=== PATIENT | female | born 1970 | race Caucasian/White ===

== ENCOUNTER → 2016-04-09 | Outpatient (REF) ==
[~2016-04-09] MED LIST: ALBUTEROL0.09 MG/A1 IH; ALEVE 220MG220 MG PO; ARTHRITIS MEDICATION; ASPIRIN 81M81 MG/TA2 PO; CIPRO 500MG TA500 MG PO; CLINDAMYCIN HC300 MG PO; COREG 6.256.25 MG/TA PO; DAZIDOX10 MG PO; FLAGYL500 MG PO; FLEXERIL 1010 MG/TAB PO; HYDROCODONE/APAP; LASIX 40MG TABL40 MG PO; LEXAPRO 10MG10 MG PO; LIPITOR 80MG80 MG PO; LISINOPRIL/HCTZ1 TAB PO; LISINOPRIL2.5 MG PO; LORTAB 5/500 501 TAB PO; LORTAB 7.5/5001 TAB PO; MECLIZINE25 MG PO; MOTRIN 800800 MG/TAB PO; NAPROSYN500 MG PO; NITROSTAT0.4 MG SL; NITROSTAT0.4 MG/TAB SL; NORCO 325 MG-51 TAB; NORCO 325 MG-51 TAB PO; NORCO 325 MG-7.1 TAB PO; NORVASC2.5 MG PO; PLAVIX 75MG TAB75 MG PO; TOPROL XL 25MG25 MG PO; TYLENOL 325MG325 MG PO; VALIUM2 MG PO; XANAX 0.5MG0.5 MG PO; ZESTRIL2.5 MG PO; ZITHROMAX500 MG PO; [UNRECOGNIZED DRUG - OTHER] PO; [UNRECOGNIZED DRUG - REMARK]
== END ==
LOC: ZLAB.WCH 10:30
DX: Z01.89 Encounter for other specified special examinations (principal)

== ENCOUNTER 2016-04-30 06:56 | Emergency (ER) | payer BC ==
[~2016-04-30] VITALS: Ht 162.6 cm; Wt 90.9 kg
[~2016-04-30 06:56] MED LIST changes: -ASPIRIN 81M81 MG/TA2 PO; -COREG 6.256.25 MG/TA PO; -DAZIDOX10 MG PO; -FLEXERIL 1010 MG/TAB PO; -LASIX 40MG TABL40 MG PO; -LEXAPRO 10MG10 MG PO; -LIPITOR 80MG80 MG PO; -NITROSTAT0.4 MG/TAB SL; -NORVASC2.5 MG PO; -PLAVIX 75MG TAB75 MG PO; -TOPROL XL 25MG25 MG PO; -TYLENOL 325MG325 MG PO; -XANAX 0.5MG0.5 MG PO; -ZESTRIL2.5 MG PO
[2016-04-30] MEDS ORDERED: FLEXERIL 1010 MG/TAB PO (08:10)
[2016-04-30] MEDS ORDERED: NORCO 325 MG-51 TAB PO (08:14)
[2016-04-30 08:26] VITALS: BP 147/89; PULSE 107; TEMP 98.2
[2016-11-24] MEDS ORDERED: NORCO 325 MG-51 TAB PO (01:52)
[2016-11-24] MEDS ORDERED: NORVASC2.5 MG PO (01:52)
== END 2016-04-30 08:26 | disposition home or self-care (01) ==
LOC: COL.ER 06:56
DX: S29.012A Strain of muscle and tendon of back wall of thorax, initial encounter (principal); S56.812A Strain of other muscles, fascia and tendons at forearm level, left arm, initial encounter; W11.XXXA Fall on and from ladder, initial encounter; Y92.009 Unspecified place in unspecified non-institutional (private) residence as the place of occurrence of the external cause; I10 Essential (primary) hypertension; I25.2 Old myocardial infarction; F17.210 Nicotine dependence, cigarettes, uncomplicated

== ENCOUNTER 2016-08-31 17:15 | Emergency (ER) | payer OTHER ==
[~2016-08-31] VITALS: Ht 162.6 cm; Wt 82.7 kg
[~2016-08-31 17:15] MED LIST changes: +FLEXERIL 1010 MG/TAB PO
[2016-08-31 17:23] VITALS: BP 154/97; TEMP 98.7
[2016-08-31] MEDS ORDERED: LASIX 40MG TABL40 MG PO (17:27)
[2016-08-31] MEDS ORDERED: COREG 6.256.25 MG/TA PO (17:27)
[2016-08-31] MEDS ORDERED: PLAVIX 75MG TAB75 MG PO (17:28)
[2016-08-31] MEDS ORDERED: XANAX 0.5MG0.5 MG PO (17:28)
[2016-08-31 18:33] VITALS: PULSE 95
[2016-11-24] MEDS ORDERED: NORCO 325 MG-51 TAB PO (01:52)
[2016-11-24] MEDS ORDERED: NORVASC2.5 MG PO (01:52)
== END 2016-08-31 18:34 | disposition home or self-care (01) ==
LOC: COL.ER 17:15
DX: S63.501A Unspecified sprain of right wrist, initial encounter (principal); W22.09XA Striking against other stationary object, initial encounter; I25.10 Atherosclerotic heart disease of native coronary artery without angina pectoris; I50.9 Heart failure, unspecified; J44.9 Chronic obstructive pulmonary disease, unspecified; F17.210 Nicotine dependence, cigarettes, uncomplicated; Z79.02 Long term (current) use of antithrombotics/antiplatelets

== ENCOUNTER → 2016-09-12 | Outpatient (REF) ==
[~2016-09-12] MED LIST changes: +ASPIRIN 81M81 MG/TA2 PO; +COREG 6.256.25 MG/TA PO; +DAZIDOX10 MG PO; +LASIX 40MG TABL40 MG PO; +LEXAPRO 10MG10 MG PO; +LIPITOR 80MG80 MG PO; +NITROSTAT0.4 MG/TAB SL; +NORVASC2.5 MG PO; +PLAVIX 75MG TAB75 MG PO; +TOPROL XL 25MG25 MG PO; +TYLENOL 325MG325 MG PO; +XANAX 0.5MG0.5 MG PO; +ZESTRIL2.5 MG PO
[2016-09-12 10:28] LABS: THYROID STIMULATING HORMONE 0.531 uIU/mL (0.465-4.680)
== END ==
LOC: ZLAB.WCH 09:32
PROVIDERS: Nurse Practitioner Family
DX: Z01.89 Encounter for other specified special examinations (principal)

== ENCOUNTER → 2016-09-13 | Outpatient (REF) | LOC: ZLAB.WCH 08:54 | DX: Z01.89 Encounter for other specified special examinations (principal) ==

== ENCOUNTER 2016-10-08 19:46 | Inpatient (IN) | payer OTHER ==
[2016-10-08] VITALS (90 sets, daily range): O2SAT 100
[~2016-10-08] VITALS: Ht 167.6 cm; Wt 86.1 kg
[~2016-10-08 19:46] MED LIST changes: -ASPIRIN 81M81 MG/TA2 PO; -DAZIDOX10 MG PO; -LEXAPRO 10MG10 MG PO; -LIPITOR 80MG80 MG PO; -NITROSTAT0.4 MG/TAB SL; -NORVASC2.5 MG PO; -TOPROL XL 25MG25 MG PO; -TYLENOL 325MG325 MG PO; -ZESTRIL2.5 MG PO
[2016-10-08 20:23] LABS: BASO # 0.1 (0.0-0.2); BASO % 0.7 % (0.0-2.0); EOS % 7.6 % (0-4.0); GRAN # 6.1 (1.4-6.5); GRAN % 48.9 % (42.2-75.2); HEMATOCRIT 44.9 % (37.0-47.0); HEMOGLOBIN 15.3 g/dl (12.5-16.0); LYMPH # 4.6 (1.2-3.4); LYMPH % 36.5 % (20.0-51.0); MEAN CELL VOLUME 93 fl (80.0-100.0); MEAN CORPUSCULAR HEMOGLOBIN 32 pg (27.0-31.0); MEAN CORPUSCULAR HGB CONC 34 g/dl (33.0-37.0); MEAN PLATELET VOLUME 9.7 fl (7.4-10.4); MONO # 0.8 (0.1-0.6); PLATELET COUNT 287 K/mm3 (130-400); RED BLOOD COUNT 4.84 M/mm3 (4.10-5.30); REDCELL DISTRIBUTION WIDTH-CV 13.1 % (11.5-14.5); WHITE BLOOD COUNT 12.6 K/mm3 (4.8-10.8)
[2016-10-08 20:35] LABS: ADJUSTED CALCIUM 8.6 mg/dL (8.4-10.2); ALANINE AMINOTRANSFERASE 24 U/L (9-52); ALBUMIN 3.7 gm/dL (3.5-5.0); ALKALINE PHOSPHATASE 69 U/L (50-136); ANION GAP 11 mmol/L (7-16); BILIRUBIN,TOTAL 0.6 mg/dL (0.0-1.0); BLOOD UREA NITROGEN 2 mg/dL (7-17); CALCIUM 8.4 mg/dL (8.4-10.2); CARBON DIOXIDE 21 mmol/L (22-30); CHLORIDE 109 mmol/L (98-107); GLUCOSE 84 mg/dL (74-106); LIPASE 88 U/L (23-300); POTASSIUM 3.5 mmol/L (3.4-5.0); SALICYLATE 2.1 mg/dL; SODIUM 140 mmol/L (137-145); TOTAL PROTEIN 6.6 gm/dL (6.4-8.2)
[2016-10-08] MEDS ORDERED: XANAX 0.5MG0.5 MG PO (20:37)
[2016-10-08 20:38] LABS: ACETAMINOPHEN < 10 ug/mL (10-30)
[2016-10-08] MEDS ORDERED: FLEXERIL 1010 MG/TAB PO (20:38)
[2016-10-08 20:49] LABS: AMPHETAMINE URINE NEGATIVE; BARBITURATES URINE NEGATIVE; BENZODIAZEPINES URINE POSITIVE; BUPRENORPHINE URINE NEGATIVE; METHADONE URINE NEGATIVE; OPIATES URINE NEGATIVE; OXYCODONE URINE NEGATIVE; PH 7 (5-8); PHENCYCLIDINE URINE NEGATIVE; PROPOXYPHENE URINE NEGATIVE; THC CANNABINOIDS URINE NEGATIVE; URINE APPEARANCE Clear; URINE BACTERIA Rare /hpf; URINE BILIRUBIN Negative (NEGATIVE); URINE BLOOD Negative (NEGATIVE); URINE COLOR Straw; URINE GLUCOSE Negative (NEGATIVE); URINE KETONE Negative (NEGATIVE); URINE RBC 0-2 /hpf; URINE UROBILINOGEN Negative (NEGATIVE); URINE WBC 0-2 /hpf
[2016-10-08] MEDS ORDERED: NITROSTAT0.4 MG/TAB SL (21:11)
[2016-10-08 21:12] LABS: TROPONIN-I 0.439 ng/mL (0.000-0.034)
[2016-10-08 23:22] LABS: PARTIAL THROMBOPLASTIN TIME 28.6 SECONDS (26.0-37.0)
[2016-10-09] VITALS (651 sets, daily range): BP systolic 120–148; BP diastolic 74–98; PULSE 83–100; TEMP 97–98.3; O2SAT 90–100
[2016-10-09 06:02] LABS: BASO # 0.1 (0.0-0.2); BASO % 0.8 % (0.0-2.0); EOS # 0.9 (0.0-0.7); EOS % 9.3 % (0-4.0); GRAN % 59.6 % (42.2-75.2); HEMATOCRIT 44.9 % (37.0-47.0); HEMOGLOBIN 15.4 g/dl (12.5-16.0); LYMPH # 2.3 (1.2-3.4); MEAN CELL VOLUME 92 fl (80.0-100.0); MEAN CORPUSCULAR HEMOGLOBIN 31 pg (27.0-31.0); MEAN CORPUSCULAR HGB CONC 34 g/dl (33.0-37.0); MEAN PLATELET VOLUME 9.3 fl (7.4-10.4); MONO # 0.7 (0.1-0.6); MONO % 6.9 % (1.7-9.3); PLATELET COUNT 294 K/mm3 (130-400); REDCELL DISTRIBUTION WIDTH-CV 13.2 % (11.5-14.5)
[2016-10-09 08:48] LABS: PARTIAL THROMBOPLASTIN TIME 36.6 SECONDS (26.0-37.0)
[2016-10-10] VITALS (685 sets, daily range): BP systolic 112–148; BP diastolic 66–97; PULSE 74–91; TEMP 97.3–98.4; O2SAT 100
[2016-10-10 04:42] LABS: HEMATOCRIT 44.9 % (37.0-47.0); HEMOGLOBIN 15.4 g/dl (12.5-16.0); MEAN CELL VOLUME 92 fl (80.0-100.0); MEAN CORPUSCULAR HEMOGLOBIN 32 pg (27.0-31.0); MEAN CORPUSCULAR HGB CONC 34 g/dl (33.0-37.0); MEAN PLATELET VOLUME 9.3 fl (7.4-10.4); PLATELET COUNT 296 K/mm3 (130-400); RED BLOOD COUNT 4.88 M/mm3 (4.10-5.30); REDCELL DISTRIBUTION WIDTH-CV 13.3 % (11.5-14.5); WHITE BLOOD COUNT 9.4 K/mm3 (4.8-10.8)
[2016-10-10 04:53] LABS: CALCIUM 8.5 mg/dL (8.4-10.2); CREATININE, serum 0.6 mg/dL (0.52-1.25); MAGNESIUM 1.8 mg/dL (1.6-2.3); POTASSIUM 3.1 mmol/L (3.4-5.0)
[2016-10-10 05:08] LABS: TROPONIN-I 1.31 ng/mL (0.000-0.034)
[2016-10-11] VITALS (597 sets, daily range): BP systolic 107–153; BP diastolic 61–108; PULSE 71–94; TEMP 97.2–98.8; O2SAT 93–100
[2016-10-11 18:42] LABS: TROPONIN-I 0.645 ng/mL (0.000-0.034)
[2016-10-11 19:26] LABS: POTASSIUM 3.8 mmol/L (3.4-5.0)
[2016-10-12] VITALS (1068 sets, daily range): BP systolic 120–154; BP diastolic 85–100; PULSE 75–84; TEMP 97.8–98.2; O2SAT 89–100
[2016-10-12 05:58] LABS: HEMATOCRIT 44.3 % (37.0-47.0); MEAN CELL VOLUME 93 fl (80.0-100.0); MEAN CORPUSCULAR HEMOGLOBIN 31 pg (27.0-31.0); MEAN CORPUSCULAR HGB CONC 34 g/dl (33.0-37.0); MEAN PLATELET VOLUME 9.3 fl (7.4-10.4); PLATELET COUNT 287 K/mm3 (130-400); RED BLOOD COUNT 4.79 M/mm3 (4.10-5.30)
[2016-10-12 06:08] LABS: POTASSIUM 3.6 mmol/L (3.4-5.0)
[2016-10-12 06:23] LABS: TROPONIN-I 0.566 ng/mL (0.000-0.034)
[2016-10-12 06:28] LABS: CALCIUM 8.4 mg/dL (8.4-10.2); CREATININE, serum 0.62 mg/dL (0.52-1.25); POTASSIUM 3.6 mmol/L (3.4-5.0)
[2016-10-12] MEDS ORDERED: PLAVIX 75MG TAB75 MG PO (16:50)
[2016-10-12] MEDS ORDERED: LIPITOR 80MG80 MG PO (16:50)
[2016-10-12] MEDS ORDERED: ASPIRIN 81M81 MG/TA2 PO (16:51)
[2016-10-12] MEDS ORDERED: ZESTRIL2.5 MG PO (16:51)
[2016-10-12] MEDS ORDERED: TOPROL XL 25MG25 MG PO (16:51)
[2016-10-12] MEDS ORDERED: LEXAPRO 10MG10 MG PO (16:52)
[2016-10-12] MEDS ORDERED: TYLENOL 325MG325 MG PO (16:52)
[2016-11-24] MEDS ORDERED: NORVASC2.5 MG PO (01:52)
[2016-11-24] MEDS ORDERED: NORCO 325 MG-51 TAB PO (01:52)
== END 2016-10-12 18:28 | DRG 917 ==
LOC: COL.ER 19:46 → ICU 21:46 → MEDICAL 10-10 19:38 → ICU 10-11 12:40
PROVIDERS: Emergency Medicine; Family Medicine; Internal Medicine; Nurse Practitioner Family
DX: T42.4X1A Poisoning by benzodiazepines, accidental (unintentional), initial encounter (principal); I21.4 Non-ST elevation (NSTEMI) myocardial infarction; F33.2 Major depressive disorder, recurrent severe without psychotic features; T48.1X1A Poisoning by skeletal muscle relaxants [neuromuscular blocking agents], accidental (unintentional), initial encounter; I10 Essential (primary) hypertension; F17.210 Nicotine dependence, cigarettes, uncomplicated; Z85.820 Personal history of malignant melanoma of skin; Z88.0 Allergy status to penicillin; I25.2 Old myocardial infarction
CPT/HCPCS: 90791-AI; 99222-AI; 99232-AI; 99233-AI; 99239; J1644; J1650; J1940; J7030

== ENCOUNTER 2016-10-29 22:54 | Emergency (ER) | payer OTHER ==
[~2016-10-29] VITALS: Ht 165.1 cm; Wt 87.3 kg
[~2016-10-29 22:54] MED LIST changes: +ASPIRIN 81M81 MG/TA2 PO; +LEXAPRO 10MG10 MG PO; +LIPITOR 80MG80 MG PO; +NITROSTAT0.4 MG/TAB SL; +TOPROL XL 25MG25 MG PO; +TYLENOL 325MG325 MG PO; +ZESTRIL2.5 MG PO
[2016-10-29 22:57] VITALS: TEMP 97.2
[2016-10-29 23:23] LABS: BASO # 0.1 (0.0-0.2); BASO % 0.8 % (0.0-2.0); EOS # 1.1 (0.0-0.7); EOS % 9.7 % (0-4.0); GRAN # 5.2 (1.4-6.5); GRAN % 46.4 % (42.2-75.2); HEMATOCRIT 43.2 % (37.0-47.0); LYMPH # 4.2 (1.2-3.4); LYMPH % 37.2 % (20.0-51.0); MEAN CELL VOLUME 92 fl (80.0-100.0); MEAN CORPUSCULAR HEMOGLOBIN 32 pg (27.0-31.0); MEAN CORPUSCULAR HGB CONC 35 g/dl (33.0-37.0); MONO # 0.6 (0.1-0.6); PLATELET COUNT 329 K/mm3 (130-400); RED BLOOD COUNT 4.69 M/mm3 (4.10-5.30); WHITE BLOOD COUNT 11.3 K/mm3 (4.8-10.8)
[2016-10-29 23:27] LABS: ADJUSTED CALCIUM 8.8 mg/dL (8.4-10.2); ALBUMIN 3.9 gm/dL (3.5-5.0); BILIRUBIN,TOTAL 0.4 mg/dL (0.0-1.0); CALCIUM 8.7 mg/dL (8.4-10.2); CREATININE, serum 0.83 mg/dL (0.52-1.25); POTASSIUM 3.1 mmol/L (3.4-5.0); TOTAL PROTEIN 7.2 gm/dL (6.4-8.2)
[2016-10-29 23:34] LABS: TROPONIN-I 0.056 ng/mL (0.000-0.034)
[2016-10-30 01:00] VITALS: BP 144/84; PULSE 76
[2016-10-30] MEDS ORDERED: LASIX 40MG TABL40 MG PO (01:03)
[2016-10-30] MEDS ORDERED: COREG 6.256.25 MG/TA PO (01:03)
[2016-10-30] MEDS ORDERED: DAZIDOX10 MG PO (01:04)
[2016-10-30] MEDS ORDERED: PLAVIX 75MG TAB75 MG PO (01:04)
[2016-10-30] MEDS ORDERED: ASPIRIN 81M81 MG/TA2 PO (01:05)
[2016-10-30] MEDS ORDERED: LEXAPRO 10MG10 MG PO (01:05)
[2016-10-30] MEDS ORDERED: NITROSTAT0.4 MG/TAB SL (01:06)
[2016-10-30 02:11] LABS: AMPHETAMINE URINE NEGATIVE; BARBITURATES URINE NEGATIVE; BENZODIAZEPINES URINE POSITIVE; BUPRENORPHINE URINE NEGATIVE; METHADONE URINE NEGATIVE; OPIATES URINE POSITIVE; OXYCODONE URINE POSITIVE; PHENCYCLIDINE URINE NEGATIVE; PROPOXYPHENE URINE NEGATIVE; THC CANNABINOIDS URINE NEGATIVE
[2016-11-24] MEDS ORDERED: NORVASC2.5 MG PO (01:52)
[2016-11-24] MEDS ORDERED: NORCO 325 MG-51 TAB PO (01:52)
== END 2016-10-30 01:30 | disposition short-term general hospital (02) ==
LOC: COL.ER 22:54
PROVIDERS: Emergency Medicine
DX: I21.3 ST elevation (STEMI) myocardial infarction of unspecified site (principal); I10 Essential (primary) hypertension; I25.2 Old myocardial infarction; I25.10 Atherosclerotic heart disease of native coronary artery without angina pectoris; E78.5 Hyperlipidemia, unspecified; F17.210 Nicotine dependence, cigarettes, uncomplicated; Z79.02 Long term (current) use of antithrombotics/antiplatelets; Z79.82 Long term (current) use of aspirin; Z90.710 Acquired absence of both cervix and uterus; Z98.890 Other specified postprocedural states
CPT/HCPCS: J1170; J1644; J2060

== ENCOUNTER 2016-11-18 21:00 | Emergency (ER) | payer OTHER ==
[~2016-11-18] VITALS: Ht 162.6 cm; Wt 89.1 kg
[~2016-11-18 21:00] MED LIST changes: +DAZIDOX10 MG PO
[2016-11-18 21:02] VITALS: TEMP 98
[2016-11-18 21:21] LABS: BASO # 0.1 (0.0-0.2); BASO % 0.5 % (0.0-2.0); EOS # 0.7 (0.0-0.7); EOS % 5.1 % (0-4.0); GRAN # 7.6 (1.4-6.5); GRAN % 56.3 % (42.2-75.2); HEMATOCRIT 45.3 % (37.0-47.0); HEMOGLOBIN 15.7 g/dl (12.5-16.0); LYMPH # 4.3 (1.2-3.4); MEAN CELL VOLUME 92 fl (80.0-100.0); MEAN CORPUSCULAR HEMOGLOBIN 32 pg (27.0-31.0); MEAN CORPUSCULAR HGB CONC 35 g/dl (33.0-37.0); MEAN PLATELET VOLUME 8.7 fl (7.4-10.4); MONO # 0.8 (0.1-0.6); MONO % 5.7 % (1.7-9.3); PLATELET COUNT 394 K/mm3 (130-400); RED BLOOD COUNT 4.92 M/mm3 (4.10-5.30); REDCELL DISTRIBUTION WIDTH-CV 13.1 % (11.5-14.5); WHITE BLOOD COUNT 13.6 K/mm3 (4.8-10.8)
[2016-11-18 21:34] LABS: ADJUSTED CALCIUM 9.3 mg/dL (8.4-10.2); BILIRUBIN,TOTAL 0.9 mg/dL (0.0-1.0); CALCIUM 9.3 mg/dL (8.4-10.2); CREATININE, serum 0.78 mg/dL (0.52-1.25); TOTAL PROTEIN 7.1 gm/dL (6.4-8.2)
[2016-11-18 22:04] LABS: TROPONIN-I 1.31 ng/mL (0.000-0.034)
[2016-11-18 22:32] LABS: INR 1.1 (0.8-3.0)
[2016-11-18 23:18] VITALS: BP 134/95; PULSE 84
[2016-11-24] MEDS ORDERED: NORCO 325 MG-51 TAB PO (01:52)
[2016-11-24] MEDS ORDERED: NORVASC2.5 MG PO (01:52)
== END 2016-11-18 23:18 | disposition short-term general hospital (02) ==
LOC: COL.ER 21:00
PROVIDERS: Emergency Medicine
DX: I21.4 Non-ST elevation (NSTEMI) myocardial infarction (principal); I50.9 Heart failure, unspecified; F17.210 Nicotine dependence, cigarettes, uncomplicated; Z98.890 Other specified postprocedural states; Z79.82 Long term (current) use of aspirin
CPT/HCPCS: J1170; J1644

== ENCOUNTER 2016-11-29 21:58 | Emergency (ER) | payer SELFPAY ==
[~2016-11-29] VITALS: Ht 162.6 cm; Wt 85.5 kg
[~2016-11-29 21:58] MED LIST changes: +NORVASC2.5 MG PO
[2016-11-29 22:36] LABS: BASO # 0.1 (0.0-0.2); BASO % 0.7 % (0.0-2.0); EOS # 0.7 (0.0-0.7); EOS % 4.1 % (0-4.0); GRAN # 10.1 (1.4-6.5); GRAN % 62.2 % (42.2-75.2); HEMATOCRIT 45.7 % (37.0-47.0); HEMOGLOBIN 15.8 g/dl (12.5-16.0); LYMPH # 4.5 (1.2-3.4); LYMPH % 27.9 % (20.0-51.0); MEAN CELL VOLUME 91 fl (80.0-100.0); MEAN CORPUSCULAR HEMOGLOBIN 32 pg (27.0-31.0); MEAN CORPUSCULAR HGB CONC 35 g/dl (33.0-37.0); MEAN PLATELET VOLUME 8.9 fl (7.4-10.4); MONO # 0.8 (0.1-0.6); MONO % 4.9 % (1.7-9.3); PLATELET COUNT 385 K/mm3 (130-400); RED BLOOD COUNT 5.01 M/mm3 (4.10-5.30); REDCELL DISTRIBUTION WIDTH-CV 12.9 % (11.5-14.5); WHITE BLOOD COUNT 16.2 K/mm3 (4.8-10.8)
[2016-11-29 22:41] LABS: PROTHROMBIN TIME 10.8 SECONDS (9.7-12.8)
[2016-11-29 22:44] LABS: PARTIAL THROMBOPLASTIN TIME 31.8 SECONDS (26.0-37.0)
[2016-11-29 23:47] LABS: ADJUSTED CALCIUM 9.7 mg/dL (8.4-10.2); ALBUMIN 4.3 gm/dL (3.5-5.0); BILIRUBIN,TOTAL 0.5 mg/dL (0.0-1.0); CALCIUM 9.9 mg/dL (8.4-10.2); CREATININE, serum 0.72 mg/dL (0.52-1.25); POTASSIUM 3.2 mmol/L (3.4-5.0); TOTAL PROTEIN 7.4 gm/dL (6.4-8.2)
[2016-11-29 23:59] LABS: TROPONIN-I 0.035 ng/mL (0.000-0.034)
[2016-11-30 00:15] VITALS: BP 132/91; PULSE 87
[2016-11-30 00:17] VITALS: TEMP 96.8
== END 2016-11-30 01:24 | disposition home or self-care (01) ==
LOC: COL.ER 21:58
PROVIDERS: Family Medicine
DX: R07.9 Chest pain, unspecified (principal); I10 Essential (primary) hypertension; E78.5 Hyperlipidemia, unspecified; I25.10 Atherosclerotic heart disease of native coronary artery without angina pectoris; D75.1 Secondary polycythemia; Z95.5 Presence of coronary angioplasty implant and graft; Z79.82 Long term (current) use of aspirin
CPT/HCPCS: C9113; J1170

== ENCOUNTER 2016-12-04 04:13 | Emergency (ER) | payer SELFPAY ==
[~2016-12-04] VITALS: Ht 162.6 cm; Wt 85.5 kg
[2016-12-04 04:24] VITALS: TEMP 98.2
[2016-12-04 04:32] LABS: BASO # 0.1 (0.0-0.2); BASO % 0.8 % (0.0-2.0); EOS # 1.1 (0.0-0.7); EOS % 7.6 % (0-4.0); GRAN # 7.5 (1.4-6.5); GRAN % 53.1 % (42.2-75.2); HEMATOCRIT 46.3 % (37.0-47.0); LYMPH # 4.6 (1.2-3.4); LYMPH % 32.3 % (20.0-51.0); MEAN CELL VOLUME 92 fl (80.0-100.0); MEAN CORPUSCULAR HEMOGLOBIN 32 pg (27.0-31.0); MEAN CORPUSCULAR HGB CONC 35 g/dl (33.0-37.0); MEAN PLATELET VOLUME 8.8 fl (7.4-10.4); MONO # 0.8 (0.1-0.6); MONO % 5.8 % (1.7-9.3); PLATELET COUNT 362 K/mm3 (130-400); RED BLOOD COUNT 5.05 M/mm3 (4.10-5.30); REDCELL DISTRIBUTION WIDTH-CV 13.1 % (11.5-14.5); WHITE BLOOD COUNT 14.1 K/mm3 (4.8-10.8)
[2016-12-04 04:36] LABS: INR 0.9 (0.8-3.0); PROTHROMBIN TIME 10.4 SECONDS (9.7-12.8)
[2016-12-04 04:39] LABS: PARTIAL THROMBOPLASTIN TIME 29.3 SECONDS (26.0-37.0)
[2016-12-04 04:41] LABS: ADJUSTED CALCIUM 9.3 mg/dL (8.4-10.2); ALBUMIN 4.4 gm/dL (3.5-5.0); BILIRUBIN,TOTAL 0.5 mg/dL (0.0-1.0); CALCIUM 9.6 mg/dL (8.4-10.2); CREATININE, serum 0.68 mg/dL (0.52-1.25); TOTAL PROTEIN 7.7 gm/dL (6.4-8.2)
[2016-12-04 04:53] LABS: TROPONIN-I 0.019 ng/mL (0.000-0.034)
[2016-12-04 07:25] VITALS: BP 132/83; PULSE 96
== END 2016-12-04 07:26 | disposition home or self-care (01) ==
LOC: COL.ER 04:13
PROVIDERS: Emergency Medicine
DX: I50.9 Heart failure, unspecified (principal); E87.6 Hypokalemia; I10 Essential (primary) hypertension; J44.9 Chronic obstructive pulmonary disease, unspecified; F17.210 Nicotine dependence, cigarettes, uncomplicated; Z79.82 Long term (current) use of aspirin; Z79.02 Long term (current) use of antithrombotics/antiplatelets; Z95.5 Presence of coronary angioplasty implant and graft; Z90.89 Acquired absence of other organs; Z90.710 Acquired absence of both cervix and uterus
CPT/HCPCS: J1940; J2060; J2765

== ENCOUNTER 2017-01-10 16:56 | Emergency (ER) | payer MEDICAID ==
[~2017-01-10] VITALS: Ht 162.6 cm; Wt 85.5 kg
[2017-01-10 16:58] VITALS: BP 151/85; PULSE 92; TEMP 97.9
[2017-01-10] MEDS ORDERED: REMERON 15M15 MG/TA1 PO (17:28)
[2017-01-10] MEDS ORDERED: AMBIEN 5MG TABLE5 MG PO (17:28)
[2017-01-10] MEDS ORDERED: MINIPRESS2 MG PO (17:28)
== END 2017-01-10 18:32 | disposition home or self-care (01) ==
LOC: COL.ER 16:56
DX: S76.011A Strain of muscle, fascia and tendon of right hip, initial encounter (principal); S89.91XA Unspecified injury of right lower leg, initial encounter; I25.10 Atherosclerotic heart disease of native coronary artery without angina pectoris; J44.9 Chronic obstructive pulmonary disease, unspecified; F17.210 Nicotine dependence, cigarettes, uncomplicated; D45 Polycythemia vera; Z79.82 Long term (current) use of aspirin; W01.0XXA Fall on same level from slipping, tripping and stumbling without subsequent striking against object, initial encounter

== ENCOUNTER 2017-04-28 10:56 | Emergency (ER) | payer MEDICAID ==
[~2017-04-28] VITALS: Ht 162.6 cm; Wt 85.5 kg
[~2017-04-28 10:56] MED LIST changes: +AMBIEN 5MG TABLE5 MG PO; +MINIPRESS2 MG PO; +REMERON 15M15 MG/TA1 PO
[2017-04-28 11:05] VITALS: BP 115/56; PULSE 85; TEMP 98.2
== END 2017-04-28 11:59 | disposition home or self-care (01) ==
LOC: COL.ER 10:56
DX: M79.644 Pain in right finger(s) (principal); I25.10 Atherosclerotic heart disease of native coronary artery without angina pectoris; I10 Essential (primary) hypertension; F17.210 Nicotine dependence, cigarettes, uncomplicated

== ENCOUNTER → 2017-06-03 | Outpatient (REF) | LOC: ZLAB.WCH 17:58 | DX: Z01.89 Encounter for other specified special examinations (principal) ==

== ENCOUNTER → 2018-01-10 | Outpatient (REF) | LOC: ZLAB.WCH 16:29 | DX: Z01.89 Encounter for other specified special examinations (principal) ==

== ENCOUNTER → 2018-06-30 | Outpatient (REF) | LOC: ZLAB.WCH 17:36 | DX: Z01.89 Encounter for other specified special examinations (principal) ==

== ENCOUNTER → 2020-01-08 | Emergency (ER) | payer MEDICARE, MEDICAID ==
[~2020-01-08] VITALS: Ht 162.6 cm; Wt 92.7 kg
[2020-01-08 17:57] VITALS: TEMP 97.5
[2020-01-08 18:46] VITALS: BP 132/86; PULSE 83
== END ==
LOC: COL.ER 17:37
DX: S83.92XA Sprain of unspecified site of left knee, initial encounter (principal); I25.10 Atherosclerotic heart disease of native coronary artery without angina pectoris; I10 Essential (primary) hypertension; F32.9 Major depressive disorder, single episode, unspecified; F17.210 Nicotine dependence, cigarettes, uncomplicated; Z88.0 Allergy status to penicillin; Z88.1 Allergy status to other antibiotic agents; W01.0XXA Fall on same level from slipping, tripping and stumbling without subsequent striking against object, initial encounter; Y92.009 Unspecified place in unspecified non-institutional (private) residence as the place of occurrence of the external cause
CPT/HCPCS: L1846

== ENCOUNTER → 2021-01-11 | Outpatient (CLI) | payer MEDICARE, MEDICAID | LOC: MHCPAIN 13:27 | DX: M47.817 Spondylosis without myelopathy or radiculopathy, lumbosacral region (principal); M53.3 Sacrococcygeal disorders, not elsewhere classified; M54.50 Low back pain, unspecified | CPT/HCPCS: G0463 ==

== ENCOUNTER 2021-09-13 19:21 | Emergency (ER) | payer MEDICARE, MEDICAID ==
[~2021-09-13] VITALS: Ht 162.6 cm; Wt 90.9 kg
[2021-09-13 21:34] LABS: COLLECTION METHOD CLEAN CATCH
[2021-09-13 21:41] LABS: PH 5 (5-8); URINE APPEARANCE Clear (CLEAR/HAZY); URINE BILIRUBIN Negative (NEGATIVE); URINE BLOOD Negative (NEGATIVE); URINE COLOR Yellow (YELLOW); URINE GLUCOSE Negative (NEGATIVE); URINE KETONE Negative (NEGATIVE); URINE LEUKOCYTE ESTERASE Negative (NEGATIVE); URINE NITRATE Negative (NEGATIVE); URINE PROTEIN(semi-quant) Negative (NEGATIVE); URINE UROBILINOGEN Negative (NEGATIVE)
[2021-09-13 21:43] LABS: MUCOUS Present (NOT PRESENT); SQUAMOUS EPITHELIAL 0-2 /hpf (0-10); URINE BACTERIA None Seen /hpf (NONE SEEN); URINE RBC 0-2 /hpf (0-2)
[2021-09-13 23:12] VITALS: BP 148/73; PULSE 69; TEMP 98.1
== END 2021-09-13 23:16 | disposition home or self-care (01) ==
LOC: COL.ER 19:21
PROVIDERS: Nurse Practitioner
DX: M25.551 Pain in right hip (principal); F17.210 Nicotine dependence, cigarettes, uncomplicated; Z91.040 Latex allergy status
CPT/HCPCS: J1170

== ENCOUNTER 2021-09-20 13:18 | Emergency (ER) | payer MEDICARE, MEDICAID ==
[~2021-09-20] VITALS: Ht 162.6 cm; Wt 93.2 kg
[2021-09-20 13:36] VITALS: BP 141/73; PULSE 76; TEMP 98.3
== END 2021-09-20 15:09 | disposition home or self-care (01) ==
LOC: COL.ER 13:18
DX: M25.562 Pain in left knee (principal); F17.200 Nicotine dependence, unspecified, uncomplicated; Z98.890 Other specified postprocedural states; Z91.040 Latex allergy status
CPT/HCPCS: L1830

== ENCOUNTER → 2022-01-11 | Outpatient (CLI) | payer MEDICARE, MEDICAID | LOC: COL.RAD 11:43 | DX: E78.5 Hyperlipidemia, unspecified (principal); I65.29 Occlusion and stenosis of unspecified carotid artery | CPT/HCPCS: Q9967 ==

== ENCOUNTER → 2022-05-03 | Outpatient (CLI) | payer MEDICARE, MEDICAID ==
[~2022-05-03] MED LIST changes: +ADIPEX-P37.5 MG PO; +ALDACTONE 25MG25 M1 PO; +ASPIRIN E.C. 8181 MG PO; +COZAAR 25MG25 MG/TAB PO; +DOXYCYCLINE 10100 MG PO; +FLOVENT 110MCG7.9 GM IH; +LASIX 20MG TABL20 MG PO; +MINIPRESS 5M5 MG/CAP PO; -MINIPRESS2 MG PO; +NORCO 325 MG-101 TAB PO; +PRILOSEC 20MG20 MG PO; +VITAMIN D31000 I1 PO; +ZYBAN150 M1
== END ==
LOC: COL.ER 17:38 → EDSTATUS 17:41 → COL.RAD 17:42
DX: R07.9 Chest pain, unspecified (principal); Z95.0 Presence of cardiac pacemaker